=== PATIENT | male | born 1975 | race Caucasian/White ===

== ENCOUNTER 2017-02-06 08:33 | Day surgery (SDC) | payer OTHER ==
[2017-02-03 15:55] VITALS: BMI 40.1
[2017-02-06] MEDS ORDERED: BUPIVACAINE HCL/PF (5 MG/ML) 30 ML VIAL IJ ONE (08:45)
[2017-02-06] MEDS ORDERED: MIDAZOLAM HCL 2 MG/2 ML SINGLE DOSE VIAL ONE (08:45)
[2017-02-06] MEDS ORDERED: DEXAMETHASONE SOD PHOSPHATE/PF 10 MG/ML SDV ONE (08:47)
[2017-02-06] MEDS ORDERED: LIDOCAINE HCL/PF 2% SDV 5ML VIAL ONE (09:27)
[2017-02-06] MEDS ORDERED: PROPOFOL 20 ML ONE ×2 (09:27→09:38)
[2017-02-06] MEDS ORDERED: ONDANSETRON 4 MG/2 ML VIAL ONE ×2 (09:45→11:52)
[2017-02-06] MEDS ORDERED: DEXAMETHASONE SOD PHOSPHATE 4 MG/1 ML VIAL ONE (09:45)
[2017-02-06] MEDS ORDERED: ceFAZolin SODIUM 1 GM VIAL ONE (09:45)
[2017-02-06] MEDS ORDERED: oxyCODONE HCL 5 MG TABLET PO PRN (10:11)
[2017-02-06] MEDS ORDERED: ONDANSETRON 4 MG/2 ML VIAL IVPUSH PRN (10:11)
[2017-02-06] MEDS ORDERED: LACTATED RINGERS SOLUTION 1,000 ML IV SCH (10:15)
[2017-02-06] MEDS ORDERED: DESFLURANE GAS 240 ML BOTTLE IH ONE (10:51)
--- NOTE | 2017-02-06 11:43 | SURG ---
Surgery Jig Hand Note Jig Hand: Kelly Tran PA-C Date of Service: 02/06/17 Diagnosis: Left ankle fracture Procedure: Open reduction internal fixation of left ankle fracture I was present for the entirety of the operative procedure. For further detail, please refer to operative report. Visit type - Case Type Case Type: Scheduled Admission - Emergency Emergency Visit: No - New patient This patient is new to me today: Yes Date on this admission: 02/06/17
--- NOTE | 2017-02-06 12:02 | OP ---
DATE OF OPERATION: 02/06/2017 PREOPERATIVE DIAGNOSIS: Right distal fibular fracture. POSTOPERATIVE DIAGNOSIS: Right distal fibular fracture plus syndesmosis injury. PROCEDURE: Right ankle open reduction internal fixation of ankle and syndesmosis. SURGEON: Martin Jin MD CUSTOMER SOLUTIONS SPECIALIST: LEOPOLDO Gonzalez, whose skilled full assistance was necessary for the safe and timely performance of this procedure. Ms. Tran was able to provide limb positioning, assistance in retraction, assistance in fracture reduction as well as fixation and insertion of orthopaedic hardware. ANESTHESIA: Regional plus general. POSTOPERATIVE CONDITION: Stable. COMPLICATIONS: None. IMPLANTS: Arthrex distal 1/3 tibia plate with associated cortical and cancellous screws, one TightRope. INDICATIONS: This is a pleasant gentleman who suffered a Norris C-type ankle fracture. Treatment options including nonoperative versus operative management were discussed. Operative risks were recommended as this is an unstable type injury and was shown to be unstable on stress radiographs. Surgical risks were reviewed in detail including bleeding, infection, neurovascular injury, need for further surgery, postoperative pain and stiffness, nonunion, malunion, hardware failure or cut out. We discussed medical risks such as heart attack, stroke, DVT, PE, or . We discussed the use of perioperative antibiotic and DVT prophylaxis. We reviewed the postoperative rehabilitation protocol and need for postoperative mobilization. I addressed all of the patient's questions. He voiced understanding. I also offered him the enterprise architect manager phone in case he had any misunderstands, and he declined at this time. DESCRIPTION OF PROCEDURE: The patient was brought to the operating room after administration of regional block in the preoperative holding area. The right lower extremity was then prepped and draped in the usual sterile fashion. A preoperative dose of antibiotics was given, and the usual time-out procedure was performed. At this point, the incision was marked out over the lateral fibula. The limb was exsanguinated and tourniquet was inflated to 275 mmHg. An incision was then carried down through skin to subcutaneous tissue. Blunt spreading was used to expose the fascia to avoid any injury to the superficial peroneal nerve. This was then split along its fibers. This exposed the peroneal fascia and fibular fracture. The soft tissues were elevated using a periosteal elevator off of the fibula and fracture site. The callus was debrided about the fracture site using a curette as well as the elevator. With the ends now mobilized, reduction forceps was used to obtain anatomic alignment . The decision was made to place a lag screw. A 3.5 drill bit was used first followed by a 2.5-mm drill bit, and the lag screw was inserted across the fracture site maintaining the fracture in a reduced position. A neutralization plate was then chosen and affixed to the fibula. This was done using proximally 3.5 cortical, distally 3.5 cortical as well as 4.0 cancellous screws. The ankle was now tested with an external rotation stress test. The ankle did show some widening of the medial clear space. For this reason, it was decided to provide fixation of the syndesmosis. A TightRope device was chosen. A 3.7 drill bit was used to create a tunnel across the fibula and across the tibia. This was drilled under fluoroscopic guidance. The TightRope device was now passed across both bones. It was then tightened and placed securing the syndesmosis. Radiographs following TightRope fixation demonstrated no further widening. At this point, the entire construct was examined both visually and fluoroscopically. Both fracture reduction and hardware placement were satisfactory. The wound was copiously irrigated. The deep tissues were closed using 0 Vicryl. The subcutaneous tissue was approximated using 3-0 Vicryl. The skin was closed using running 3-0 nylon. Sterile dressings were placed. The patient's tourniquet was let down after 75 minutes. The patient was extubated and transferred to the recovery room in stable condition. Marcelo [id number]
[2017-02-06] MEDS ORDERED: oxyCODONE HCL 5 MG TABLET ONE (13:07)
[2017-02-06 13:36] VITALS: TEMP 98.3
[2017-02-06 14:32] VITALS: BP 117/70; PULSE 86
== END 2017-02-06 14:25 | disposition home or self-care (01) ==
LOC: FASU 08:33
PROVIDERS: ATTEND Orthopaedic Surgery Sports Medicine
PROC: 0SSF0ZZ Reposition Right Ankle Joint, Open Approach (ICD-10-PCS; 2017-02-06)
PROC: 0QSJ04Z Reposition Right Fibula with Internal Fixation Device, Open Approach (ICD-10-PCS; principal; 2017-02-06 09:32)
DX: S82.61XA Displaced fracture of lateral malleolus of right fibula, initial encounter for closed fracture (principal); S93.431A Sprain of tibiofibular ligament of right ankle, initial encounter; X58.XXXA Exposure to other specified factors, initial encounter; Y93.9 Activity, unspecified; Y92.9 Unspecified place or not applicable
CPT/HCPCS: 73610-TC-RT; 94760